=== PATIENT | male | born 1935 | race Caucasian/White ===

== ENCOUNTER 2019-06-06 10:15 | Inpatient (IN) | payer MEDICARE, OTHER ==
[~2019-06-06] VITALS: Ht 175.3 cm; Wt 83.9 kg
[2019-06-06] MEDS ORDERED: OxyCODONE HCL 5 MG IR TABLET PO PRN (12:15)
[2019-06-06] MEDS ORDERED: ACETAMINOPHEN 325 MG TABLET PO PRN (12:15)
[2019-06-06 12:18] VITALS: BP 107/59
[2019-06-06 19:48] VITALS: BP 130/65
[2019-06-06] MEDS: DOCUSATE SODIUM 100 MG CAPSULE PO SCH ×2 (21:00→21:09)
[2019-06-06] MEDS: SENNA 187 MG TABLET PO SCH ×2 (21:00→21:09)
[2019-06-06] MEDS: CARVEDILOL 6.25 MG TABLET PO SCH (21:09)
[2019-06-06] MEDS: TAMSULOSIN HCL 0.4 MG CAPSULE PO SCH (21:09)
[2019-06-06] MEDS: ATORVASTATIN CALCIUM 20 MG TABLET PO SCH (21:09)
[2019-06-06 22:09] VITALS: BP 149/61
[2019-06-07 06:15] VITALS: BP 150/63
[2019-06-07 07:00] VITALS: BP 150/68
[2019-06-07] MEDS: PRAZOSIN HCL 5 MG CAPSULE PO SCH (08:13)
[2019-06-07] MEDS: MULTIVITAMINS WITH IRON TABLET PO SCH (08:13)
[2019-06-07] MEDS: ASPIRIN 81 MG CHEWABLE TABLET PO SCH (08:13)
[2019-06-07] MEDS: ASCORBIC ACID 500 MG TABLET PO SCH (08:13)
[2019-06-07] MEDS: DOCUSATE SODIUM 100 MG CAPSULE PO SCH ×3 (08:13→21:00)
[2019-06-07] MEDS: CARVEDILOL 6.25 MG TABLET PO SCH ×2 (08:13→21:28)
[2019-06-07 09:10] LABS: BASOPHILS % (AUTO) 1.1 % (0.0-2.0); EOSINOPHILS % (AUTO) 4.6 % (1.0-6.0); HEMATOCRIT 33.4 % (41-53); HEMOGLOBIN 10.9 g/dL (13.5-17.5); LYMPHOCYTES # (AUTO) 1.5 K/uL (1.0-4.8); MEAN CORPUSCULAR HEMOGLOBIN 27.9 pg (26.0-34.0); MEAN CORPUSCULAR HGB CONC 32.5 G/dL (31.0-37.0); MEAN CORPUSCULAR VOLUME 86 fL (80-100); MONOCYTES # (AUTO) 0.4 K/uL (0.1-1.0); MONOCYTES % (AUTO) 5.8 % (2.0-9.0); NEUTROPHILS # (AUTO) 4.4 K/uL (1.8-7.7); NEUTROPHILS % (AUTO) 65.5 % (40.0-70.0); PLATELET COUNT (AUTO) 232 K/uL (150-450); RED BLOOD CELL COUNT(AUTO) 3.89 MIL/uL (4.50-5.90); RED CELL DISTRIBUTION WIDTH 14.4 % (11.5-14.5)
[2019-06-07 09:24] LABS: ALANINE AMINOTRANSFERASE 33 U/L (12-78); ALBUMIN 3.1 g/dL (3.4-5.0); ALKALINE PHOSPHATASE 90 U/L (46-116); ANION GAP 9 mmol/L (8-16); ASPARTATE AMINOTRANSFERASE 20 U/L (15-37); BILIRUBIN,TOTAL 0.5 mg/dL (0.1-1.0); CALCIUM, TOTAL 8.8 mg/dL (8.8-10.5); CARBON DIOXIDE 25 mmol/L (22-29); CHLORIDE 108 mmol/L (98-107); CREATININE 1.09 mg/dL (0.60-1.30); GLUCOSE,RANDOM 101 mg/dL (70-110); POTASSIUM 4.3 mmol/L (3.5-5.1); SODIUM SERUM 142 mmol/L (136-145); TOTAL PROTEIN, SERUM 6.6 g/dL (6.4-8.2); UREA NITROGEN, BLOOD 21 mg/dL (7-18)
[2019-06-07 09:34] LABS: GLOMERULAR FILTR. RATE CALC > 60 mL/min (>60)
[2019-06-07 11:00] VITALS: BP 115/62
[2019-06-07 18:00] VITALS: BP 135/57
[2019-06-07] MEDS: SENNA 187 MG TABLET PO SCH (21:00)
[2019-06-07] MEDS: ATORVASTATIN CALCIUM 20 MG TABLET PO SCH (21:23)
[2019-06-07] MEDS: TAMSULOSIN HCL 0.4 MG CAPSULE PO SCH (21:23)
[2019-06-07 21:24] VITALS: BP 144/58
[2019-06-07 22:27] VITALS: BP 144/57
[2019-06-08] VITALS: BP 140/70
[2019-06-08 07:40] VITALS: BP 145/65
[2019-06-08] MEDS: ASCORBIC ACID 500 MG TABLET PO SCH (08:49)
[2019-06-08] MEDS: CARVEDILOL 6.25 MG TABLET PO SCH ×2 (08:49→20:25)
[2019-06-08] MEDS: MULTIVITAMINS WITH IRON TABLET PO SCH (08:49)
[2019-06-08] MEDS: PRAZOSIN HCL 5 MG CAPSULE PO SCH (08:50)
[2019-06-08] MEDS: ASPIRIN 81 MG CHEWABLE TABLET PO SCH (08:50)
[2019-06-08] MEDS: DOCUSATE SODIUM 100 MG CAPSULE PO SCH ×2 (09:00→19:34)
[2019-06-08 10:50] VITALS: BP 104/59
[2019-06-08] MEDS: SENNA 187 MG TABLET PO SCH (19:34)
[2019-06-08 20:10] VITALS: BP 123/42
[2019-06-08] MEDS: ATORVASTATIN CALCIUM 20 MG TABLET PO SCH (20:24)
[2019-06-08] MEDS: TAMSULOSIN HCL 0.4 MG CAPSULE PO SCH (20:24)
[2019-06-08] MEDS: MUPIROCIN CALCIUM 2% 22 GM OINTMENT NASAL SCH (20:24)
[2019-06-08 23:00] VITALS: BP 138/60
[2019-06-09 07:33] VITALS: BP 136/63
[2019-06-09] MEDS: AMINO ACIDS/PROTEIN HYDROLYS 30 ML TUBE PO SCH (09:29)
[2019-06-09] MEDS: DOCUSATE SODIUM 100 MG CAPSULE PO SCH ×2 (10:03→21:00)
[2019-06-09] MEDS: ASCORBIC ACID 500 MG TABLET PO SCH (10:04)
[2019-06-09] MEDS: MUPIROCIN CALCIUM 2% 22 GM OINTMENT NASAL SCH ×2 (10:04→20:41)
[2019-06-09] MEDS: ASPIRIN 81 MG CHEWABLE TABLET PO SCH (10:04)
[2019-06-09] MEDS: MULTIVITAMINS WITH IRON TABLET PO SCH (10:11)
[2019-06-09] MEDS: PRAZOSIN HCL 5 MG CAPSULE PO SCH (10:23)
[2019-06-09] MEDS: CARVEDILOL 6.25 MG TABLET PO SCH ×2 (10:24→21:00)
[2019-06-09 15:10] VITALS: BP 121/60
[2019-06-09] MEDS: TAMSULOSIN HCL 0.4 MG CAPSULE PO SCH (20:41)
[2019-06-09] MEDS: ATORVASTATIN CALCIUM 20 MG TABLET PO SCH (20:41)
[2019-06-09 21:00] VITALS: BP 112/56
[2019-06-09] MEDS: SENNA 187 MG TABLET PO SCH (21:00)
[2019-06-09 22:00] VITALS: BP 115/54
[2019-06-10 01:09] VITALS: BP 137/65
[2019-06-10 07:30] VITALS: BP 115/63
[2019-06-10] MEDS: ASCORBIC ACID 500 MG TABLET PO SCH (07:43)
[2019-06-10] MEDS: PRAZOSIN HCL 5 MG CAPSULE PO SCH (07:43)
[2019-06-10] MEDS: MULTIVITAMINS WITH IRON TABLET PO SCH (07:43)
[2019-06-10] MEDS: MUPIROCIN CALCIUM 2% 22 GM OINTMENT NASAL SCH ×2 (07:43→21:05)
[2019-06-10] MEDS: CARVEDILOL 6.25 MG TABLET PO SCH ×2 (07:43→21:06)
[2019-06-10] MEDS: ASPIRIN 81 MG CHEWABLE TABLET PO SCH (07:44)
[2019-06-10] MEDS: AMINO ACIDS/PROTEIN HYDROLYS 30 ML TUBE PO SCH (08:38)
[2019-06-10] MEDS: DOCUSATE SODIUM 100 MG CAPSULE PO SCH ×2 (09:00→21:00)
[2019-06-10 15:30] VITALS: BP 117/58
[2019-06-10] MEDS: SENNA 187 MG TABLET PO SCH (21:00)
[2019-06-10] MEDS: TAMSULOSIN HCL 0.4 MG CAPSULE PO SCH (21:05)
[2019-06-10] MEDS: ATORVASTATIN CALCIUM 20 MG TABLET PO SCH (21:05)
[2019-06-10] MEDS: MIRTAZAPINE 15 MG TABLET PO SCH (21:06)
[2019-06-11] VITALS: BP 121/65
[2019-06-11 07:10] VITALS: BP 137/63
[2019-06-11] MEDS: AMINO ACIDS/PROTEIN HYDROLYS 30 ML TUBE PO SCH (08:00)
[2019-06-11] MEDS: ASPIRIN 81 MG CHEWABLE TABLET PO SCH (08:21)
[2019-06-11] MEDS: CARVEDILOL 6.25 MG TABLET PO SCH ×3 (08:21→20:27)
[2019-06-11] MEDS: MULTIVITAMINS WITH IRON TABLET PO SCH (08:23)
[2019-06-11] MEDS: ASCORBIC ACID 500 MG TABLET PO SCH (08:23)
[2019-06-11] MEDS: PRAZOSIN HCL 5 MG CAPSULE PO SCH (08:27)
[2019-06-11] MEDS: DOCUSATE SODIUM 100 MG CAPSULE PO SCH ×2 (08:31→20:28)
[2019-06-11 09:59] VITALS: BP 121/51
[2019-06-11] MEDS: MUPIROCIN CALCIUM 2% 22 GM OINTMENT NASAL SCH ×2 (09:59→20:27)
[2019-06-11 13:51] VITALS: BP 116/82
[2019-06-11 15:57] VITALS: BP 137/64
[2019-06-11] MEDS: TAMSULOSIN HCL 0.4 MG CAPSULE PO SCH (20:27)
[2019-06-11] MEDS: ATORVASTATIN CALCIUM 20 MG TABLET PO SCH (20:27)
[2019-06-11] MEDS: MIRTAZAPINE 15 MG TABLET PO SCH (20:27)
[2019-06-11] MEDS: SENNA 187 MG TABLET PO SCH (20:28)
[2019-06-11 23:32] VITALS: BP 131/61
[2019-06-12 07:30] VITALS: BP 135/60
[2019-06-12] MEDS: AMINO ACIDS/PROTEIN HYDROLYS 30 ML TUBE PO SCH (08:00)
[2019-06-12] MEDS: MUPIROCIN CALCIUM 2% 22 GM OINTMENT NASAL SCH ×2 (08:01→20:46)
[2019-06-12] MEDS: CARVEDILOL 6.25 MG TABLET PO SCH ×2 (08:02→20:47)
[2019-06-12] MEDS: ASCORBIC ACID 500 MG TABLET PO SCH (08:02)
[2019-06-12] MEDS: ASPIRIN 81 MG CHEWABLE TABLET PO SCH (08:02)
[2019-06-12] MEDS: MULTIVITAMINS WITH IRON TABLET PO SCH (08:02)
[2019-06-12] MEDS: PRAZOSIN HCL 5 MG CAPSULE PO SCH (08:02)
[2019-06-12] MEDS: DOCUSATE SODIUM 100 MG CAPSULE PO SCH ×2 (08:02→21:00)
[2019-06-12 16:53] VITALS: BP 111/52
[2019-06-12 20:47] VITALS: BP 135/60
[2019-06-12] MEDS: TAMSULOSIN HCL 0.4 MG CAPSULE PO SCH (20:47)
[2019-06-12] MEDS: ATORVASTATIN CALCIUM 20 MG TABLET PO SCH (20:47)
[2019-06-12] MEDS: MIRTAZAPINE 15 MG TABLET PO SCH (21:00)
[2019-06-12] MEDS: SENNA 187 MG TABLET PO SCH (21:00)
[2019-06-12 23:32] VITALS: BP 145/69
[2019-06-13 07:45] VITALS: BP 147/66
[2019-06-13] MEDS: AMINO ACIDS/PROTEIN HYDROLYS 30 ML TUBE PO SCH (09:06)
[2019-06-13] MEDS: ASCORBIC ACID 500 MG TABLET PO SCH (09:12)
[2019-06-13] MEDS: CARVEDILOL 6.25 MG TABLET PO SCH ×2 (09:12→20:39)
[2019-06-13] MEDS: PRAZOSIN HCL 5 MG CAPSULE PO SCH (09:12)
[2019-06-13] MEDS: MULTIVITAMINS WITH IRON TABLET PO SCH (09:12)
[2019-06-13] MEDS: MUPIROCIN CALCIUM 2% 22 GM OINTMENT NASAL SCH ×2 (09:13→20:39)
[2019-06-13] MEDS: ASPIRIN 81 MG CHEWABLE TABLET PO SCH (09:13)
[2019-06-13 15:01] VITALS: BP 116/55
[2019-06-13] MEDS: TAMSULOSIN HCL 0.4 MG CAPSULE PO SCH (20:39)
[2019-06-13] MEDS: ATORVASTATIN CALCIUM 20 MG TABLET PO SCH (20:39)
[2019-06-13] MEDS: MIRTAZAPINE 15 MG TABLET PO SCH (20:39)
[2019-06-13] MEDS: SENNA 187 MG TABLET PO SCH (20:44)
[2019-06-13 20:45] VITALS: BP 127/69
[2019-06-14 00:46] VITALS: BP 125/67
[2019-06-14 08:00] VITALS: BP 127/68
[2019-06-14] MEDS: AMINO ACIDS/PROTEIN HYDROLYS 30 ML TUBE PO SCH (08:26)
[2019-06-14] MEDS: MUPIROCIN CALCIUM 2% 22 GM OINTMENT NASAL SCH ×2 (08:26→20:28)
[2019-06-14] MEDS: MULTIVITAMINS WITH IRON TABLET PO SCH (08:27)
[2019-06-14] MEDS: DOCUSATE SODIUM 100 MG CAPSULE PO PRN ×2 (08:27→08:32)
[2019-06-14] MEDS: ASPIRIN 81 MG CHEWABLE TABLET PO SCH (08:28)
[2019-06-14] MEDS: PRAZOSIN HCL 5 MG CAPSULE PO SCH (08:28)
[2019-06-14] MEDS: CARVEDILOL 6.25 MG TABLET PO SCH ×2 (08:28→20:27)
[2019-06-14] MEDS: ASCORBIC ACID 500 MG TABLET PO SCH (08:32)
[2019-06-14 15:30] VITALS: BP 120/60
[2019-06-14 20:27] VITALS: BP 121/60
[2019-06-14] MEDS: TAMSULOSIN HCL 0.4 MG CAPSULE PO SCH (20:27)
[2019-06-14] MEDS: ATORVASTATIN CALCIUM 20 MG TABLET PO SCH (20:27)
[2019-06-14] MEDS: MIRTAZAPINE 15 MG TABLET PO SCH (20:29)
[2019-06-14] MEDS: SENNA 187 MG TABLET PO SCH (20:34)
[2019-06-15 04:00] VITALS: BP 138/60
[2019-06-15 08:09] VITALS: BP 140/67
[2019-06-15] MEDS: ASCORBIC ACID 500 MG TABLET PO SCH (08:31)
[2019-06-15] MEDS: MUPIROCIN CALCIUM 2% 22 GM OINTMENT NASAL SCH ×2 (08:31→20:21)
[2019-06-15] MEDS: MULTIVITAMINS WITH IRON TABLET PO SCH (08:31)
[2019-06-15] MEDS: CARVEDILOL 6.25 MG TABLET PO SCH ×2 (08:31→20:22)
[2019-06-15] MEDS: ASPIRIN 81 MG CHEWABLE TABLET PO SCH (08:31)
[2019-06-15] MEDS: PRAZOSIN HCL 5 MG CAPSULE PO SCH (08:31)
[2019-06-15] MEDS: DOCUSATE SODIUM 100 MG CAPSULE PO PRN (08:32)
[2019-06-15] MEDS: AMINO ACIDS/PROTEIN HYDROLYS 30 ML TUBE PO SCH (08:32)
[2019-06-15 16:53] VITALS: BP 125/64
[2019-06-15 20:20] VITALS: BP 117/59
[2019-06-15] MEDS: MIRTAZAPINE 15 MG TABLET PO SCH (20:21)
[2019-06-15] MEDS: TAMSULOSIN HCL 0.4 MG CAPSULE PO SCH (20:21)
[2019-06-15] MEDS: ATORVASTATIN CALCIUM 20 MG TABLET PO SCH (20:22)
[2019-06-15] MEDS: SENNA 187 MG TABLET PO SCH ×2 (20:22→20:27)
[2019-06-16 05:21] VITALS: BP 128/59
[2019-06-16] MEDS: AMINO ACIDS/PROTEIN HYDROLYS 30 ML TUBE PO SCH (08:00)
[2019-06-16 08:05] VITALS: BP 129/59
[2019-06-16 09:30] VITALS: BP 118/56
[2019-06-16] MEDS: PRAZOSIN HCL 5 MG CAPSULE PO SCH (09:33)
[2019-06-16] MEDS: MULTIVITAMINS WITH IRON TABLET PO SCH (09:33)
[2019-06-16] MEDS: ASCORBIC ACID 500 MG TABLET PO SCH (09:33)
[2019-06-16] MEDS: ASPIRIN 81 MG CHEWABLE TABLET PO SCH (09:33)
[2019-06-16 10:40] VITALS: BP 111/62
[2019-06-16] MEDS: CARVEDILOL 6.25 MG TABLET PO SCH ×2 (10:43→20:20)
[2019-06-16 11:21] LABS: BASOPHILS % (AUTO) 0.8 % (0.0-2.0); EOSINOPHILS % (AUTO) 4.5 % (1.0-6.0); HEMOGLOBIN 12.1 g/dL (13.5-17.5); LYMPHOCYTES # (AUTO) 1.2 K/uL (1.0-4.8); MEAN CORPUSCULAR HEMOGLOBIN 27.9 pg (26.0-34.0); MEAN CORPUSCULAR HGB CONC 32.6 G/dL (31.0-37.0); MEAN CORPUSCULAR VOLUME 86 fL (80-100); MONOCYTES # (AUTO) 0.3 K/uL (0.1-1.0); NEUTROPHILS # (AUTO) 3.9 K/uL (1.8-7.7); NEUTROPHILS % (AUTO) 67.7 % (40.0-70.0); PLATELET COUNT (AUTO) 162 K/uL (150-450); RED BLOOD CELL COUNT(AUTO) 4.32 MIL/uL (4.50-5.90); RED CELL DISTRIBUTION WIDTH 14.3 % (11.5-14.5)
[2019-06-16 15:40] VITALS: BP 108/52
[2019-06-16 20:00] VITALS: BP 114/44
[2019-06-16] MEDS: MIRTAZAPINE 15 MG TABLET PO SCH (20:20)
[2019-06-16] MEDS: ATORVASTATIN CALCIUM 20 MG TABLET PO SCH (20:20)
[2019-06-16] MEDS: SENNA 187 MG TABLET PO SCH ×2 (20:20→20:23)
[2019-06-16] MEDS: TAMSULOSIN HCL 0.4 MG CAPSULE PO SCH (20:20)
[2019-06-16] MEDS ORDERED: SENNA 187 MG TABLET PO PRN (21:00)
[2019-06-17 05:00] VITALS: BP 149/67
[2019-06-17 07:20] VITALS: BP 130/72
[2019-06-17] MEDS: AMINO ACIDS/PROTEIN HYDROLYS 30 ML TUBE PO SCH (08:00)
[2019-06-17] MEDS: CARVEDILOL 6.25 MG TABLET PO SCH ×2 (08:03→20:32)
[2019-06-17] MEDS: MULTIVITAMINS WITH IRON TABLET PO SCH (08:03)
[2019-06-17] MEDS: PRAZOSIN HCL 5 MG CAPSULE PO SCH (08:03)
[2019-06-17] MEDS: ASPIRIN 81 MG CHEWABLE TABLET PO SCH (08:03)
[2019-06-17] MEDS: ASCORBIC ACID 500 MG TABLET PO SCH (08:04)
[2019-06-17] MEDS: COAL TAR 0.5% 255 ML SHAMPOO TP PRN (14:09)
[2019-06-17 15:22] VITALS: BP 121/56
[2019-06-17] MEDS: DOCUSATE SODIUM 100 MG CAPSULE PO PRN ×2 (20:32→20:34)
[2019-06-17] MEDS: TAMSULOSIN HCL 0.4 MG CAPSULE PO SCH (20:32)
[2019-06-17] MEDS: MIRTAZAPINE 15 MG TABLET PO SCH (20:32)
[2019-06-17] MEDS: ATORVASTATIN CALCIUM 20 MG TABLET PO SCH (20:32)
[2019-06-18 00:22] VITALS: BP 127/61
[2019-06-18 07:20] VITALS: BP 111/61
[2019-06-18] MEDS: AMINO ACIDS/PROTEIN HYDROLYS 30 ML TUBE PO SCH (08:00)
[2019-06-18] MEDS: CARVEDILOL 6.25 MG TABLET PO SCH ×2 (08:11→20:25)
[2019-06-18] MEDS: ASCORBIC ACID 500 MG TABLET PO SCH (08:11)
[2019-06-18] MEDS: ASPIRIN 81 MG CHEWABLE TABLET PO SCH (08:12)
[2019-06-18] MEDS: PRAZOSIN HCL 5 MG CAPSULE PO SCH (08:12)
[2019-06-18] MEDS: MULTIVITAMINS WITH IRON TABLET PO SCH (08:12)
[2019-06-18 15:29] VITALS: BP 125/56
[2019-06-18 20:22] VITALS: BP 131/59
[2019-06-18] MEDS: ATORVASTATIN CALCIUM 20 MG TABLET PO SCH (20:25)
[2019-06-18] MEDS: MIRTAZAPINE 15 MG TABLET PO SCH (20:25)
[2019-06-18] MEDS: TAMSULOSIN HCL 0.4 MG CAPSULE PO SCH (20:25)
[2019-06-19 01:00] VITALS: BP 133/59
[2019-06-19 07:30] VITALS: BP 138/63
[2019-06-19] MEDS: AMINO ACIDS/PROTEIN HYDROLYS 30 ML TUBE PO SCH ×2 (08:00→08:13)
[2019-06-19] MEDS: PRAZOSIN HCL 5 MG CAPSULE PO SCH (08:14)
[2019-06-19] MEDS: ASCORBIC ACID 500 MG TABLET PO SCH (08:14)
[2019-06-19] MEDS: ASPIRIN 81 MG CHEWABLE TABLET PO SCH (08:15)
[2019-06-19] MEDS: MULTIVITAMINS WITH IRON TABLET PO SCH (08:15)
[2019-06-19] MEDS: CARVEDILOL 6.25 MG TABLET PO SCH ×2 (08:15→19:59)
[2019-06-19 15:45] VITALS: BP 130/64
[2019-06-19 19:57] VITALS: BP 131/59
[2019-06-19] MEDS: ATORVASTATIN CALCIUM 20 MG TABLET PO SCH (19:57)
[2019-06-19] MEDS: MIRTAZAPINE 15 MG TABLET PO SCH (19:57)
[2019-06-19] MEDS: TAMSULOSIN HCL 0.4 MG CAPSULE PO SCH (19:57)
[2019-06-19 23:28] VITALS: BP 136/64
[2019-06-20 07:42] VITALS: BP 134/64
[2019-06-20] MEDS: AMINO ACIDS/PROTEIN HYDROLYS 30 ML TUBE PO SCH (08:00)
[2019-06-20] MEDS: MULTIVITAMINS WITH IRON TABLET PO SCH (08:20)
[2019-06-20] MEDS: PRAZOSIN HCL 5 MG CAPSULE PO SCH (08:20)
[2019-06-20] MEDS: ASPIRIN 81 MG CHEWABLE TABLET PO SCH (08:20)
[2019-06-20] MEDS: ASCORBIC ACID 500 MG TABLET PO SCH (08:20)
[2019-06-20] MEDS: CARVEDILOL 6.25 MG TABLET PO SCH ×2 (08:20→20:06)
[2019-06-20 15:30] VITALS: BP 121/60
[2019-06-20 19:48] VITALS: BP 136/59
[2019-06-20] MEDS: TAMSULOSIN HCL 0.4 MG CAPSULE PO SCH (20:06)
[2019-06-20] MEDS: ATORVASTATIN CALCIUM 20 MG TABLET PO SCH (20:06)
[2019-06-20] MEDS: MIRTAZAPINE 15 MG TABLET PO SCH (20:06)
[2019-06-20 23:00] VITALS: BP 134/63
[2019-06-21 07:52] VITALS: BP 127/61
[2019-06-21] MEDS: AMINO ACIDS/PROTEIN HYDROLYS 30 ML TUBE PO SCH (08:00)
[2019-06-21] MEDS: MULTIVITAMINS WITH IRON TABLET PO SCH (08:33)
[2019-06-21] MEDS: PRAZOSIN HCL 5 MG CAPSULE PO SCH (08:33)
[2019-06-21] MEDS: ASCORBIC ACID 500 MG TABLET PO SCH (08:33)
[2019-06-21] MEDS: CARVEDILOL 6.25 MG TABLET PO SCH ×2 (08:33→20:37)
[2019-06-21] MEDS: ASPIRIN 81 MG CHEWABLE TABLET PO SCH (08:33)
[2019-06-21 15:00] VITALS: BP 110/58
[2019-06-21 20:00] VITALS: BP 121/58
[2019-06-21] MEDS: TAMSULOSIN HCL 0.4 MG CAPSULE PO SCH (20:37)
[2019-06-21] MEDS: MIRTAZAPINE 15 MG TABLET PO SCH (20:37)
[2019-06-21] MEDS: ATORVASTATIN CALCIUM 20 MG TABLET PO SCH (20:37)
[2019-06-22 01:19] VITALS: BP 122/63
[2019-06-22] MEDS: AMINO ACIDS/PROTEIN HYDROLYS 30 ML TUBE PO SCH (08:00)
[2019-06-22 09:00] VITALS: BP 121/58
[2019-06-22] MEDS: CARVEDILOL 6.25 MG TABLET PO SCH ×2 (09:07→20:38)
[2019-06-22] MEDS: ASPIRIN 81 MG CHEWABLE TABLET PO SCH (09:07)
[2019-06-22] MEDS: MULTIVITAMINS WITH IRON TABLET PO SCH (09:07)
[2019-06-22] MEDS: DOCUSATE SODIUM 100 MG CAPSULE PO PRN (09:07)
[2019-06-22] MEDS: ASCORBIC ACID 500 MG TABLET PO SCH (09:07)
[2019-06-22] MEDS: PRAZOSIN HCL 5 MG CAPSULE PO SCH (09:07)
[2019-06-22 15:02] VITALS: BP 126/59
[2019-06-22] MEDS: COAL TAR 0.5% 255 ML SHAMPOO TP PRN (16:44)
[2019-06-22 20:36] VITALS: BP 113/51
[2019-06-22] MEDS: TAMSULOSIN HCL 0.4 MG CAPSULE PO SCH (20:38)
[2019-06-22] MEDS: MIRTAZAPINE 15 MG TABLET PO SCH (20:38)
[2019-06-22] MEDS: ATORVASTATIN CALCIUM 20 MG TABLET PO SCH (20:38)
[2019-06-23 00:03] VITALS: BP 99/65
[2019-06-23 07:20] VITALS: BP 123/59
[2019-06-23] MEDS: AMINO ACIDS/PROTEIN HYDROLYS 30 ML TUBE PO SCH (07:58)
[2019-06-23] MEDS: MULTIVITAMINS WITH IRON TABLET PO SCH (08:00)
[2019-06-23] MEDS: PRAZOSIN HCL 5 MG CAPSULE PO SCH (08:00)
[2019-06-23] MEDS: ASCORBIC ACID 500 MG TABLET PO SCH (08:00)
[2019-06-23] MEDS: ASPIRIN 81 MG CHEWABLE TABLET PO SCH (08:01)
[2019-06-23] MEDS: CARVEDILOL 6.25 MG TABLET PO SCH ×2 (08:01→20:24)
[2019-06-23 15:30] VITALS: BP 125/58
[2019-06-23] MEDS: ATORVASTATIN CALCIUM 20 MG TABLET PO SCH (20:24)
[2019-06-23] MEDS: MIRTAZAPINE 15 MG TABLET PO SCH (20:24)
[2019-06-23] MEDS: TAMSULOSIN HCL 0.4 MG CAPSULE PO SCH (20:24)
[2019-06-24] VITALS: BP 130/67
[2019-06-24 07:12] VITALS: BP 134/69
[2019-06-24] MEDS: PRAZOSIN HCL 5 MG CAPSULE PO SCH (08:26)
[2019-06-24] MEDS: ASPIRIN 81 MG CHEWABLE TABLET PO SCH (08:26)
[2019-06-24] MEDS: CARVEDILOL 6.25 MG TABLET PO SCH ×2 (08:26→20:11)
[2019-06-24] MEDS: ASCORBIC ACID 500 MG TABLET PO SCH (08:26)
[2019-06-24] MEDS: MULTIVITAMINS WITH IRON TABLET PO SCH (08:26)
[2019-06-24 15:10] VITALS: BP 124/64
[2019-06-24 19:55] VITALS: BP 129/58
[2019-06-24] MEDS: MIRTAZAPINE 15 MG TABLET PO SCH (20:11)
[2019-06-24] MEDS: ATORVASTATIN CALCIUM 20 MG TABLET PO SCH (20:12)
[2019-06-24] MEDS: TAMSULOSIN HCL 0.4 MG CAPSULE PO SCH (20:12)
[2019-06-24 22:00] VITALS: BP 107/58
[2019-06-25 07:22] VITALS: BP_SYST 119; BP_SYST 132; BP_DIAS 60; BP_DIAS 66
[2019-06-25] MEDS: ASCORBIC ACID 500 MG TABLET PO SCH (08:01)
[2019-06-25] MEDS: CARVEDILOL 6.25 MG TABLET PO SCH ×2 (08:01→20:22)
[2019-06-25] MEDS: ASPIRIN 81 MG CHEWABLE TABLET PO SCH (08:01)
[2019-06-25] MEDS: PRAZOSIN HCL 5 MG CAPSULE PO SCH (08:01)
[2019-06-25] MEDS: MULTIVITAMINS WITH IRON TABLET PO SCH (08:01)
[2019-06-25 15:15] VITALS: BP 129/62
[2019-06-25 20:20] VITALS: BP 136/65
[2019-06-25] MEDS: MIRTAZAPINE 15 MG TABLET PO SCH (20:22)
[2019-06-25] MEDS: TAMSULOSIN HCL 0.4 MG CAPSULE PO SCH (20:22)
[2019-06-25] MEDS: ATORVASTATIN CALCIUM 20 MG TABLET PO SCH (20:22)
[2019-06-25 21:20] VITALS: BP 147/61
[2019-06-26 06:00] VITALS: BP 134/59
[2019-06-26 08:15] VITALS: BP 131/59
[2019-06-26] MEDS: PRAZOSIN HCL 5 MG CAPSULE PO SCH (08:27)
[2019-06-26] MEDS: MULTIVITAMINS WITH IRON TABLET PO SCH (08:27)
[2019-06-26] MEDS: CARVEDILOL 6.25 MG TABLET PO SCH ×2 (08:28→20:35)
[2019-06-26] MEDS: ASCORBIC ACID 500 MG TABLET PO SCH (08:28)
[2019-06-26] MEDS: ASPIRIN 81 MG CHEWABLE TABLET PO SCH (08:29)
[2019-06-26] MEDS ORDERED: MIRT-89 PO (13:25)
[2019-06-26] MEDS ORDERED: MVITFE PO (13:25)
[2019-06-26] MEDS ORDERED: PRAZ5 PO (13:25)
[2019-06-26] MEDS ORDERED: ACET-2247 PO (13:25)
[2019-06-26] MEDS ORDERED: TAMS-13 PO (13:25)
[2019-06-26] MEDS ORDERED: ASPI81TA39 PO (13:25)
[2019-06-26] MEDS ORDERED: CARV6 PO (13:25)
[2019-06-26] MEDS ORDERED: ATOR20TA86 PO (13:25)
[2019-06-26] MEDS ORDERED: ASCO500 PO (13:25)
[2019-06-26 15:00] VITALS: BP 114/54
[2019-06-26 20:30] VITALS: BP 136/62
[2019-06-26] MEDS: TAMSULOSIN HCL 0.4 MG CAPSULE PO SCH (20:32)
[2019-06-26] MEDS: ATORVASTATIN CALCIUM 20 MG TABLET PO SCH (20:32)
[2019-06-26] MEDS: MIRTAZAPINE 15 MG TABLET PO SCH (20:32)
[2019-06-26] MEDS ORDERED: DOCU-275 PO (23:02)
[2019-06-27 05:00] VITALS: BP 147/65
[2019-06-27 09:15] VITALS: BP 129/58
[2019-06-27] MEDS: ASPIRIN 81 MG CHEWABLE TABLET PO SCH (09:18)
[2019-06-27] MEDS: ASCORBIC ACID 500 MG TABLET PO SCH (09:18)
[2019-06-27] MEDS: CARVEDILOL 6.25 MG TABLET PO SCH (09:18)
[2019-06-27] MEDS: PRAZOSIN HCL 5 MG CAPSULE PO SCH (09:18)
[2019-06-27] MEDS: MULTIVITAMINS WITH IRON TABLET PO SCH (09:19)
== END 2019-06-27 14:30 | disposition home health service (06) | DRG 541 ==
LOC: 2WR 10:15 → 4E 06-09 11:00 → 2WR 06-10 12:34 → UNDODISIN 06-27 14:30
PROVIDERS: ADMIT Physical Medicine & Rehabilitation; ATTEND Physical Medicine & Rehabilitation
DX: M86.8X7 Other osteomyelitis, ankle and foot (principal); E78.5 Hyperlipidemia, unspecified; F32.9 Major depressive disorder, single episode, unspecified; I12.9 Hypertensive chronic kidney disease with stage 1 through stage 4 chronic kidney disease, or unspecified chronic kidney disease; N18.9 Chronic kidney disease, unspecified; I73.9 Peripheral vascular disease, unspecified; N40.0 Benign prostatic hyperplasia without lower urinary tract symptoms; Z89.511 Acquired absence of right leg below knee; Z79.899 Other long term (current) drug therapy; Z87.891 Personal history of nicotine dependence; G62.9 Polyneuropathy, unspecified; E78.00 Pure hypercholesterolemia, unspecified; D63.8 Anemia in other chronic diseases classified elsewhere
CPT/HCPCS: 87081; 93970; 97110; 97163; 97167; 97530; 97535; 99366